=== PATIENT | male | born 1975 | race Caucasian/White ===

== ENCOUNTER 2016-11-16 14:26 | Inpatient (IN) | payer BC ==
--- NOTE | ~2016-11-16 | OP ---
Record Of Operation [facility] [address] [place]. [address] NAME: VIKI ENG : 73 STATUS : DIS IN PAT#: [id number] AGE: 41 ADM/REG DATE : 11/16/16 MR#: [id number] REPORT SERV DATE: 12/07/16 DICTATED BY: PABLO BOYD DATE: 12/07/16 REPORT STATUS : Draft TRANSCRIBED BY: PENG DATE: 12/07/16 DATE OF PROCEDURE: 11/19/2016 PREPROCEDURE DIAGNOSIS: Followup status post tPA thrombolysis, right lower extremity venous segment. POSTOPERATIVE DIAGNOSES: 1. Right common femoral vein obstructive disease, chronic. 2. Right common iliac vein narrowing. PROCEDURES PERFORMED: 1. Follow up venogram of the right lower extremity status post thrombolysis. 2. Primary stent, right common femoral vein, 8 x 150 EverFlex. 3. Angioplasty of the right common iliac vein, 12 x 4 balloon. ANESTHESIA: Local MAC. COMPLICATIONS: None. INDICATION FOR PROCEDURE: Secondary to this very pleasant 41-year-old gentleman status post complex venous reconstruction secondary to chronic venous disease and acute event with thrombolysis on 11/18/2016. Recommendations were made for additional therapy, and consent was given. DETAILS OF PROCEDURE: The patient was brought to the endovascular operating room, placed in supine position, prepped and draped in routine sterile fashion with the attention to the bilateral groin region and the right lower leg. The venogram was then performed via the femoral segment, and this was found to have a reasonable flow to the femoral level. There was continued obstruction noted in this level. The left femoral vein was then catheterized with a micropuncture needle followed by a sheath, and a Bradley flush catheter was advanced into the inferior vena cava. Inferior vena cavogram was performed showing no evidence of thrombus within the vena cava filter. A wire was then passed into the right side stented segment, and passed all the way down to the femoral level. Additional venograms confirmed evidence of chronic obstructive disease in the femoral level. An 8 x 150 EverFlex stent was then passed in position and deployed at the femoral level reconstructing the segment. This now had improved flow out of the venous system in the right lower leg. Initially, the common iliac vein on the right side had the edge of the stent appeared to have some narrowing. Angioplasty was then performed with this segment with a 12 x 4 balloon. This opened nicely, and I felt this was adequately treated. Wires, catheters, and sheaths were then removed. The right leg was then wrapped with a gauze and an Karri wrap, and the patient was then transferred to the floor. MONCHO/PENG Record Of [address] [address] NAME: VIKI ENG : 73 STATUS : DIS IN PAT#: [id number] AGE: 41 ADM/REG DATE : 11/16/16 MR#: [id number] REPORT SERV DATE: 12/07/16 DICTATED BY: PABLO BOYD DATE: 12/07/16 REPORT STATUS : Draft TRANSCRIBED BY: PENG DATE: 12/07/16 Pablo Boyd M.D. / [id number] CC: Pablo Boyd M.D.
--- NOTE | ~2016-11-16 | OP ---
Record Of Operation [facility] [address] [place]. [address] NAME: VIKI ENG : 73 STATUS : DIS IN PAT#: [id number] AGE: 41 ADM/REG DATE : 11/16/16 MR#: [id number] REPORT SERV DATE: 12/09/16 DICTATED BY: PABLO BOYD DATE: 12/07/16 REPORT STATUS : Draft TRANSCRIBED BY: PENG DATE: 12/07/16 DATE OF PROCEDURE: 11/18/2016 PREOPERATIVE DIAGNOSIS: Thrombosis of the iliofemoral system, right side, with deep venous thrombosis. PROCEDURES PERFORMED: 1. Right popliteal vein catheterization and venography. 2. Thrombectomy of the right femoral vein, common femoral vein, right external iliac vein, and right common iliac vein with AngioJet thrombectomy Power-Pulse technique. 3. Left femoral vein catheterization with placement of inferior vena cava filter and inferior vena cavogram. 4. Catheter for tPA thrombolysis of the right lower extremity, femoral and iliac system, EKOS, 24 hours. ANESTHESIA: Local MAC. COMPLICATIONS: None. INDICATION FOR PROCEDURE: Secondary to this pleasant 41-year-old gentleman status post chronic deep venous thrombosis multiple years ago with significant venous outflow obstructive disease with concomitant pain and dysfunction status post reconstruction of the right common and external iliac artery obstructive disease. The patient had sustained a thrombosis of this despite adequate anticoagulation with Xarelto medication, recommendations are made for venography of the right lower extremity with thrombectomy, thrombolysis, and potential for IVC filter placement. Risks and benefits were discussed. Consent was obtained. DETAILS OF PROCEDURE: The patient was brought to the endovascular operating room, placed in supine position, prepped and draped in routine sterile fashion with attention to the bilateral groins and entire right lower leg. The right popliteal vein was then cannulated with micropuncture needle under ultrasound guidance. A wire was then placed followed by a sheath. Pictures of these structures were taken, and placed on the chart. Next, the venogram was then performed throughout the thigh showing multiple collateral network secondary to central venous occlusion. A wire was then carefully passed through the femoral vein all the way to the common femoral vein, and there was thrombus noted in the stented segment. A wire was then passed into the vena cava, and at this point, the vein was prepared for the AngioJet thrombectomy. Via the left femoral vein, this was then catheterized with micropuncture needle followed by a sheath. The catheter was then advanced, inserted all the way into the vena cava. Inferior vena cavogram was performed and a Beaver inferior vena cava filter was then deployed. This deployed below the level of the renal veins. Next, via the right side, Power-Pulse technique was then performed with 12 mg of tPA and 50 mL of heparin saline along the entire stented segments, and then after 10 minutes, suctioning was then performed with the AngioJet catheter. Completion imaging showed patency of the stent; however, there was some residual thrombus noted, and thrombolytics were indicated. A 30 cm EKOS catheter was then passed in position and Record Of Operation [address] [place]. [address] NAME: VIKI ENG : 73 STATUS : DIS IN PAT#: [id number] AGE: 41 ADM/REG DATE : 11/16/16 MR#: [id number] REPORT SERV DATE: 12/09/16 DICTATED BY: PABLO BOYD DATE: 12/07/16 REPORT STATUS : Draft TRANSCRIBED BY: PENG DATE: 12/07/16 performed thrombolysis over the next 24 hour, and for the right femoral vein, common femoral vein, external iliac, and right common iliac vein. At this point, the catheters were sutured into position, and the patient was transferred to the ICU for continued monitoring. CL/PENG Pablo Boyd M.D. / [id number] CC: Pablo Boyd M.D.
--- NOTE | ~2016-11-16 | DS ---
Discharge Summary [facility] [address] [place]. [address] NAME: VIKI ENG : 73 STATUS : DIS IN PAT#: [id number] AGE: 41 ADM/REG DATE : 11/16/16 MR#: [id number] REPORT SERV DATE: 12/04/16 DICTATED BY: PABLO BOYD DATE: 12/03/16 REPORT STATUS : Draft TRANSCRIBED BY: PENG DATE: 12/03/16 Data Collection from hospitalization DISCHARGE DIAGNOSES: 1. Deep vein thrombosis of the right lower extremity. 2. Essential-primary hypertension. 3. Insomnia. 4. Chronic pain syndrome. 5. Gastroesophageal reflux disease. 6. Tobacco use. 7. Obesity. CONSULTATIONS: None. PROCEDURES PERFORMED: 1. Right lower extremity venogram, IVC filter placement, thrombectomy, transcatheter Angiojet and tPA infusion catheter placement on 11/18/2016. 2. Right lower extremity venogram tPA infusion catheter removal/tPA recheck, stent placement right femoral/common femoral vein, [employer] venous right femoral/common femoral vein and right common iliac vein on 11/19/2016. MEDICATIONS: Zyrtec 10 mg daily, vitamin D 1000 units daily, Motrin 800 mg every six hours as needed, Prinivil 10 mg daily, Mag-Ox 250 mg daily, Prilosec 20 mg daily, Percocet 5/325 one tablet every six hours as needed, Xarelto 15 mg twice a day and 20 mg with supper as instructed, and Ambien 10 mg at bedtime. CONDITION AT DISCHARGE: Stable. DISPOSITION: The patient was discharged home on a low-sodium, low-cholesterol diet with activities as instructed. He would follow up with me four weeks following discharge. HOSPITAL COURSE: This is a 41-year-old man who has chronic venous hypertension in the right lower extremity with ulceration. He is status post venogram with venoplasty/stent of the right external iliac and common femoral vein as well as IVUS catheter and venoplasty in the right femoral vein on 11/10/2016. The patient said he was instructed to hold his Xarelto the night prior to the procedure and then restarted it on the day of the procedure as directed. On 11/11/2016, the leg began to feel sore. He said the pain continues to improve. He said the pain was now greater than 10/10. He said the pain was constant, but increases with walking. He said the pain is from his groin to his knee. He denied any pain in the lower leg. He has a wound on the right medial ankle that was unchanged. He denied any complaints in the left lower extremity. He does have some shortness of breath, which is chronic and unchanged. He denied chest pain. He had a history of pulmonary embolus five years ago and said he knew what that felt like and did not feel like that now. He took his Xarelto on 11/15/2016. He had been taking Percocet since the procedure and complained of some constipation. He was admitted to the hospital for further evaluation and treatment. Upon admission, his venous duplex had shown findings consistent with thrombosed right external iliac vein and common femoral vein stent. Heparin drip was continued. It was felt Discharge Summary [facility] [address] [facility] [place]. [address] NAME: VIKI ENG : 73 STATUS : DIS IN PAT#: [id number] AGE: 41 ADM/REG DATE : 11/16/16 MR#: [id number] REPORT SERV DATE: 12/04/16 DICTATED BY: PABLO BOYD DATE: 12/03/16 REPORT STATUS : Draft TRANSCRIBED BY: PENG DATE: 12/03/16 that he would need to undergo probable surgery and tPA for the deep venous thrombosis. On 11/18/2016, he was taken to the operating room where he underwent the above-mentioned procedure. He tolerated this well, and there were no complications. On 11/19/2016, he was taken back to the operating room where he underwent the above-mentioned procedure. He tolerated this well, and there were no complications. On 11/20/2016, heparin drip continued. Discharge planning was performed. Colace was given. The following day, milk of magnesia and MiraLAX were provided. He was also given a Dulcolax suppository. Xarelto was resumed. Discharge planning was performed. On 11/22/2016, he continued to do well. Discharge instructions were given. Due to his improved and stable condition, he was discharged home with the above-stated instructions. Information collected by: Claudine Rouse I submit the above information as my discharge summary. TIARRA/MODL Pablo Boyd M.D. / [id number] CC: Pablo Boyd M.D.
[2016-11-16 15:49] LABS: BASOPHILS 0.5 %; BASOPHILS ABSOLUTE 0.03 10/3/uL (0.0-0.16); EOSINOPHILS 4.6 %; EOSINOPHILS ABSOLUTE 0.28 10/3/uL (0.0-0.53); HEMATOCRIT 39.6 % (40.0-51.0); HEMOGLOBIN 13.8 g/dL (13.6-17.8); IMMATURE GRANULOCYTES 0.2 %; IMMATURE GRANULOCYTES ABSOLUTE 0.01 10/3/uL (0.0-0.11); LYMPHOCYTES 27.3 %; LYMPHOCYTES ABSOLUTE 1.68 10/3/uL (0.67-4.30); MANUAL DIFF NO %; MEAN CORPUS HGB CONC 34.8 g/dL (32.0-36.0); MEAN CORPUSCULAR HEMOGLOB 32.2 pg (26.0-34.0); MEAN CORPUSCULAR VOLUME 92.5 fL (80-100); MEAN PLATELET VOLUME 10.3 fL (9.2-13.0); MONOCYTES 9.9 %; MONOCYTES ABSOLUTE 0.61 10/3/uL (0.21-1.20); NEUTROPHILS 57.5 %; NEUTROPHILS ABSOLUTE 3.54 10/3/uL (2.02-8.40); PLATELET COUNT 202 10/3/uL (150-400); RBC DISTRIBUTION WIDTH 13.6 % (12.0-16.0); RED CELL COUNT 4.28 10/6/uL (4.7-6.1); WHITE BLOOD CELLS 6.2 10/3/uL (4.5-10.5)
[2016-11-16 15:57] LABS: INTERNATIONAL NORMAL RATI 1.3 UNITS (-); PARTIAL THROMBO TIME 34.9 SEC (22.5-37.2); PROTIME (NOT ORD) 16.5 SEC (12.0-14.5)
[2016-11-16 16:07] LABS: BUN (BLOOD UREA NITROGEN) 9 MG/DL (6-23); CALCIUM, SERUM 9.7 MG/DL (8.5-10.4); CHLORIDE, SERUM 104 MMOL/L (96-112); CO2 (CARBON DIOXIDE) 27 MMOL/L (24-34); CREATININE 0.77 MG/DL (0.70-1.30); GFR AFRICAN AMERICAN 129 ML/MIN (>=60); GFR NON AFRICAN AMERICAN 111 ML/MIN (>=60); GLUCOSE, SERUM 99 MG/DL (60-99); POTASSIUM, SERUM 3.6 MMOL/L (3.5-5.3); SODIUM, SERUM 136 MMOL/L (135-148)
[2016-11-16] MEDS ORDERED: PRILO PO (17:29)
[2016-11-16] MEDS ORDERED: PRIN10 PO (17:29)
[2016-11-16] MEDS ORDERED: AMB10 PO (17:29)
[2016-11-16] MEDS ORDERED: XARELTO20 MG PO (17:30)
[2016-11-16] MEDS ORDERED: ZYRTEC ALLGY10 MG PO (17:31)
[2016-11-16] MEDS ORDERED: PCET PO (17:32)
[2016-11-16] MEDS ORDERED: MAG OXIDE250 MG PO (17:32)
[2016-11-16] MEDS ORDERED: VITAMIN D1000 UNI1 PO (17:32)
[2016-11-16] MEDS ORDERED: MOTRIN IB200 MG PO (17:33)
[2016-11-18 02:13] LABS: BUN (BLOOD UREA NITROGEN) 10 MG/DL (6-23); CHLORIDE, SERUM 102 MMOL/L (96-112); CO2 (CARBON DIOXIDE) 31 MMOL/L (24-34); CREATININE 0.81 MG/DL (0.70-1.30); GFR AFRICAN AMERICAN 126 ML/MIN (>=60); GFR NON AFRICAN AMERICAN 109 ML/MIN (>=60); GLUCOSE, SERUM 90 MG/DL (60-99); POTASSIUM, SERUM 4.3 MMOL/L (3.5-5.3); SODIUM, SERUM 139 MMOL/L (135-148)
[2016-11-18 15:01] LABS: HEMATOCRIT 39.6 % (40.0-51.0)
[2016-11-18 15:13] LABS: FIBRINOGEN 214 MG/DL (230-462); PARTIAL THROMBO TIME 44.6 SEC (22.5-37.2)
[2016-11-18 21:09] LABS: HEMATOCRIT 40.6 % (40.0-51.0)
[2016-11-18 21:16] LABS: PARTIAL THROMBO TIME 49.6 SEC (22.5-37.2)
[2016-11-18 21:50] LABS: FIBRINOGEN 82 MG/DL (230-462)
[2016-11-19 02:10] LABS: BASOPHILS 0.4 %; BASOPHILS ABSOLUTE 0.03 10/3/uL (0.0-0.16); EOSINOPHILS 4.5 %; EOSINOPHILS ABSOLUTE 0.32 10/3/uL (0.0-0.53); HEMATOCRIT 40.8 % (40.0-51.0); HEMOGLOBIN 13.8 g/dL (13.6-17.8); IMMATURE GRANULOCYTES 0.1 %; IMMATURE GRANULOCYTES ABSOLUTE 0.01 10/3/uL (0.0-0.11); LYMPHOCYTES 25.9 %; LYMPHOCYTES ABSOLUTE 1.86 10/3/uL (0.67-4.30); MANUAL DIFF NO %; MEAN CORPUS HGB CONC 33.8 g/dL (32.0-36.0); MEAN CORPUSCULAR HEMOGLOB 31.6 pg (26.0-34.0); MEAN CORPUSCULAR VOLUME 93.4 fL (80-100); MONOCYTES 9.3 %; MONOCYTES ABSOLUTE 0.67 10/3/uL (0.21-1.20); NEUTROPHILS 59.8 %; NEUTROPHILS ABSOLUTE 4.28 10/3/uL (2.02-8.40); PLATELET COUNT 157 10/3/uL (150-400); RED CELL COUNT 4.37 10/6/uL (4.7-6.1); WHITE BLOOD CELLS 7.2 10/3/uL (4.5-10.5)
[2016-11-19 02:17] LABS: PARTIAL THROMBO TIME 46.2 SEC (22.5-37.2)
[2016-11-19 02:23] LABS: BUN (BLOOD UREA NITROGEN) 8 MG/DL (6-23); CALCIUM, SERUM 8.9 MG/DL (8.5-10.4); CHLORIDE, SERUM 103 MMOL/L (96-112); CO2 (CARBON DIOXIDE) 28 MMOL/L (24-34); CREATININE 0.72 MG/DL (0.70-1.30); GFR AFRICAN AMERICAN 132 ML/MIN (>=60); GFR NON AFRICAN AMERICAN 114 ML/MIN (>=60); GLUCOSE, SERUM 84 MG/DL (60-99); POTASSIUM, SERUM 4.1 MMOL/L (3.5-5.3); SODIUM, SERUM 137 MMOL/L (135-148)
[2016-11-19 02:34] LABS: FIBRINOGEN 60 MG/DL (230-462)
[2016-11-19 12:12] LABS: HEMATOCRIT 36.9 % (40.0-51.0); HEMOGLOBIN 12.8 g/dL (13.6-17.8)
[2016-11-19 12:19] LABS: PARTIAL THROMBO TIME 73.8 SEC (22.5-37.2)
[2016-11-19 12:25] LABS: FIBRINOGEN 60 MG/DL (230-462)
[2016-11-20 08:17] LABS: BASOPHILS 0.3 %; BASOPHILS ABSOLUTE 0.02 10/3/uL (0.0-0.16); EOSINOPHILS 5.3 %; EOSINOPHILS ABSOLUTE 0.38 10/3/uL (0.0-0.53); HEMATOCRIT 38.4 % (40.0-51.0); HEMOGLOBIN 13.3 g/dL (13.6-17.8); LYMPHOCYTES 38.1 %; LYMPHOCYTES ABSOLUTE 2.75 10/3/uL (0.67-4.30); MEAN CORPUS HGB CONC 34.6 g/dL (32.0-36.0); MEAN CORPUSCULAR HEMOGLOB 32.1 pg (26.0-34.0); MEAN CORPUSCULAR VOLUME 92.8 fL (80-100); MEAN PLATELET VOLUME 10.2 fL (9.2-13.0); MONOCYTES 5.7 %; MONOCYTES ABSOLUTE 0.41 10/3/uL (0.21-1.20); NEUTROPHILS 50.6 %; NEUTROPHILS ABSOLUTE 3.65 10/3/uL (2.02-8.40); PLATELET COUNT 185 10/3/uL (150-400); RBC DISTRIBUTION WIDTH 12.9 % (12.0-16.0); RED CELL COUNT 4.14 10/6/uL (4.7-6.1); WHITE BLOOD CELLS 7.2 10/3/uL (4.5-10.5)
[2016-11-20 08:21] LABS: MANUAL DIFF NO %
[2016-11-20 08:26] LABS: BUN (BLOOD UREA NITROGEN) 7 MG/DL (6-23); CALCIUM, SERUM 8.9 MG/DL (8.5-10.4); CHLORIDE, SERUM 102 MMOL/L (96-112); CO2 (CARBON DIOXIDE) 31 MMOL/L (24-34); GFR AFRICAN AMERICAN 134 ML/MIN (>=60); GFR NON AFRICAN AMERICAN 116 ML/MIN (>=60); GLUCOSE, SERUM 89 MG/DL (60-99); POTASSIUM, SERUM 3.8 MMOL/L (3.5-5.3); SODIUM, SERUM 139 MMOL/L (135-148)
[2016-11-22] MEDS ORDERED: XARELTO15 MG PO (19:29)
[2016-11-22] MEDS ORDERED: XARELTO20 MG PO (19:30)
[2016-12-02] MEDS ORDERED: 8 HOUR650 MG PO (13:24)
[2016-12-02] MEDS ORDERED: OCEAN NAS (13:24)
[2016-12-07] MEDS ORDERED: C5 PO (09:20)
== END 2016-11-22 21:00 | disposition home or self-care (01) | DRG 272 ==
LOC: 2SO 14:26 → SDC/OF 11-19 09:27 → 2SO 11-19 11:36
PROVIDERS: Anesthesiology; Specialist
PROC: 04HK33Z Insertion of Infusion Device into Right Femoral Artery, Percutaneous Approach (ICD-10-PCS; 2016-11-18)
PROC: 3E05317 Introduction of Other Thrombolytic into Peripheral Artery, Percutaneous Approach (ICD-10-PCS; 2016-11-18)
PROC: B51B1ZA Fluoroscopy of Right Lower Extremity Veins using Low Osmolar Contrast, Guidance (ICD-10-PCS; principal; 2016-11-18 06:45)
PROC: 04CK3ZZ Extirpation of Matter from Right Femoral Artery, Percutaneous Approach (ICD-10-PCS; 2016-11-18 06:45)
PROC: 04CE3ZZ Extirpation of Matter from Right Internal Iliac Artery, Percutaneous Approach (ICD-10-PCS; 2016-11-18 06:45)
PROC: 06H03DZ Insertion of Intraluminal Device into Inferior Vena Cava, Percutaneous Approach (ICD-10-PCS; 2016-11-18 06:45)
DX: I82.411 Acute embolism and thrombosis of right femoral vein (principal); E66.9 Obesity, unspecified; I10 Essential (primary) hypertension; F17.210 Nicotine dependence, cigarettes, uncomplicated; K21.9 Gastro-esophageal reflux disease without esophagitis; G89.29 Other chronic pain; I70.248 Atherosclerosis of native arteries of left leg with ulceration of other part of lower leg; I70.238 Atherosclerosis of native arteries of right leg with ulceration of other part of lower leg; K59.00 Constipation, unspecified; Z68.31 Body mass index [BMI] 31.0-31.9, adult; Z86.711 Personal history of pulmonary embolism; Z79.01 Long term (current) use of anticoagulants
CPT/HCPCS: 36012; 37187; 37191; 37212; 37214; 37238; 37248; 71010; 75820; 75825; 80048; 82962; 85014; 85018; 85025; 85384; 85610; 85730; 87641; 93005; A9270-GY; C1725; C1757; C1769; C1876; C1880; C1887; C1894; J2250; J2405; J2997; J3010; Q9967